=== PATIENT | male | born 1975 | race Caucasian/White ===

== ENCOUNTER 2019-02-17 21:37 | Emergency (ER) | payer OTHER ==
[~2019-02-17] VITALS: Ht 172.7 cm; Wt 132.7 kg
[~2019-02-17 21:37] MED LIST: LEVO25TA7 PO; LOSA25TA96 PO; OMEP20TA23 PO
[2019-02-17 22:22] LABS: BASOPHILS # (AUTO) 0.1 X10'3 (0-0.2); BASOPHILS % (AUTO) 0.7 % (0-1); EOSINOPHILS # (AUTO) 0.3 X10'3 (0-0.9); EOSINOPHILS % (AUTO) 3.2 % (0-6); HEMATOCRIT 43.9 % (42.0-52.0); HEMOGLOBIN 14.8 g/dl (14.0-17.9); LYMPHOCYTES # (AUTO) 3.2 X10'3 (1.1-4.8); LYMPHOCYTES % (AUTO) 38.2 % (21-51); MEAN CORPUSCULAR HGB CONC 33.7 g/dL (33.0-36.5); MEAN PLATELET VOLUME 7.9 FL (7.4-10.4); MONOCYTES # (AUTO) 0.7 X10'3 (0-0.9); MONOCYTES % (AUTO) 8.7 % (2-12); NEUTROPHILS # (AUTO) 4.1 X10'3 (1.8-7.7); NEUTROPHILS % (AUTO) 49.2 % (42-75); PLATELET COUNT 264 X10'3 (140-440); RED BLOOD COUNT 4.93 X10'6 (4.70-6.10); WHITE BLOOD COUNT 8.3 X10'3 (4.5-11.0)
[2019-02-17 22:54] LABS: ALANINE AMINOTRANSFERASE 50 U/L (12-78); ALBUMIN 4.1 G/DL (3.4-5.0); ALBUMIN/GLOBULIN RATIO 1.1 (1.1-1.5); ALKALINE PHOSPHATASE 62 IU/L (46-116); ANION GAP 10 (8-16); ASPARTATE AMINO TRANSFERASE 26 U/L (10-37); BILIRUBIN,TOTAL 0.4 MG/DL (0.1-1.0); BLOOD UREA NITROGEN 15 MG/DL (7-18); CALCIUM 9.7 MG/DL (8.5-10.1); CHLORIDE 106 MMOL/L (99-107); CREATININE 0.79 MG/DL (0.60-1.10); GLUCOSE 98 MG/DL (70-104); POTASSIUM 3.7 MMOL/L (3.5-5.1); SODIUM 144 MMOL/L (135-145); TOTAL CARBON DIOXIDE 27.6 MMOL/L (24-32); eGFR > 90 ML/MIN
[2019-02-17 23:02] LABS: MAGNESIUM 2.1 MG/DL (1.5-2.4)
[2019-02-17 23:11] LABS: PARTIAL THROMBOPLASTIN TIME 28 SECONDS (22-32)
[2019-02-17] MEDS ORDERED: propofol 10mg/ml 20ml vial IV ONE (23:55)
[2019-02-17] MEDS ORDERED: propofol 1000mg/100ml bottle 100 ML IV ONE (23:56)
--- NOTE | 2019-02-18 00:17 | NUR ---
OVERODE DIPRIVAN TO START MODERATE SEDATION.
[2019-02-18 01:55] VITALS: BP 121/73
== END 2019-02-18 01:57 | disposition home or self-care (01) ==
LOC: ER 21:38
DX: I48.91 Unspecified atrial fibrillation (principal); I10 Essential (primary) hypertension; K21.9 Gastro-esophageal reflux disease without esophagitis; E03.9 Hypothyroidism, unspecified; F17.210 Nicotine dependence, cigarettes, uncomplicated; Z88.0 Allergy status to penicillin; Z79.2 Long term (current) use of antibiotics
CPT/HCPCS: 36415; 71045; 80053; 83735; 83880; 84443; 84484; 85025; 85610; 85730; 92960; 93005; 99285; J2704

== ENCOUNTER 2019-06-23 14:34 | Emergency (ER) | payer OTHER ==
[~2019-06-23] VITALS: Ht 172.7 cm; Wt 126.3 kg
[2019-06-23 15:28] LABS: CLARITY,URINE CLEAR (Clear); COLOR,URINE YELLOW (Yellow); GLUCOSE, URINE NEGATIVE (Neg); KETONES,URINE NEGATIVE (Neg); LEUKOCYTE ESTERASE ,URINE NEGATIVE (Neg); NITRITES, URINE NEGATIVE (Neg); OCCULT BLOOD,URINE NEGATIVE (Neg); PROTEIN,URINE NEGATIVE (Neg); UROBILINOGEN,URINE 0.2 E.U/dL (0.2-1.0)
[2019-06-23] MEDS: ketorolac trometh. 30mg/ml inj. IM ONE (15:28)
[2019-06-23 15:29] VITALS: BP 144/88
[2019-06-23 15:33] LABS: UA COLLECTION TYPE CLN CATCH MIDSTREAM
== END 2019-06-23 15:43 | disposition home or self-care (01) ==
LOC: ER 14:37
DX: M54.5 Low back pain (principal); M54.6 Pain in thoracic spine; E66.9 Obesity, unspecified; I10 Essential (primary) hypertension; K21.9 Gastro-esophageal reflux disease without esophagitis; E03.9 Hypothyroidism, unspecified; Z98.890 Other specified postprocedural states; Z88.0 Allergy status to penicillin; Z79.899 Other long term (current) drug therapy
CPT/HCPCS: 81003; 96372; 99283; J1885